=== PATIENT | female | born 1990 | race African-American/Black ===

== ENCOUNTER 2017-08-09 21:17 | Emergency (ER) | payer BC, MEDICARE ==
[~2017-08-09] VITALS: Ht 170.2 cm; Wt 72.3 kg
[2017-08-09 23:21] LABS: BASOPHILS % 0.9 % (0.0-2.0); EOSINOPHILS % 0.9 % (0.0-5.0); HEMATOCRIT. 35.3 % (36.0-48.0); HEMOGLOBIN. 11.8 g/dL (12.0-16.0); LYMPHOCYTES % 30.4 % (20.0-50.0); MEAN CORPUSCULAR HEMOGLOBIN 27.9 pg (28.0-32.0); MEAN CORPUSCULAR VOLUME 83.8 fL (81.0-99.0); MEAN PLATELET VOLUME 8.1 fl (7.4-10.4); MONOCYTES % 4.6 % (2.0-8.0); NEUTROPHILS % 63.2 % (40.0-76.0); PLATELET 312 x1000/uL (130-400); RED BLOOD CELL COUNT 4.21 mill/uL (4.2-5.4); RED CELL DISTRIBUTION WIDTH 14.4 % (11.6-14.6)
[2017-08-09 23:31] LABS: CHLORIDE 103 mEq/L (98-107)
[2017-08-09 23:49] LABS: B-HCG QUANTITATIVE 43503 mIU/mL (<3)
[2017-08-10 01:44] LABS: CLARITY URINE CLEAR (CLEAR); COLOR URINE YELLOW (YELLOW); KETONES URINE 1+ (NEGATIVE); LEUKOCYTE ESTERASE URINE NEGATIVE (NEGATIVE); NITRITE URINE NEGATIVE (NEGATIVE); OCCULT BLOOD URINE NEGATIVE (NEGATIVE); PH URINE 5.5 (4.5-8.0); PROTEIN URINE NEGATIVE (NEGATIVE); SPECIFIC GRAVITY URINE 1.024 (1.005-1.030); UROBILINOGEN URINE 0.2 E.U./dL (0.2-1.0)
[2017-08-10] MEDS ORDERED: SODIUM CHLORIDE 0.9% 1,000 ML IV ONE (02:30)
[2017-08-10] MEDS ORDERED: ACETAMINOPHEN 325MG TABLET PO ONE (02:30)
[2017-08-10 05:45] VITALS: BP 102/65
== END 2017-08-10 05:54 | disposition home or self-care (01) ==
LOC: ER 21:17
DX: O26.892 Other specified pregnancy related conditions, second trimester (principal); R51 Headache; R04.0 Epistaxis; O20.9 Hemorrhage in early pregnancy, unspecified; R10.9 Unspecified abdominal pain; O99.282 Endocrine, nutritional and metabolic diseases complicating pregnancy, second trimester; E86.0 Dehydration; Z3A.16 16 weeks gestation of pregnancy
CPT/HCPCS: 36415; 80053; 81003; 83690; 84702; 85025; 85610; 86850; 86900; 86901; 96360; 99284; J7030; Z7610

== ENCOUNTER 2019-09-13 05:44 | Inpatient (IN) | payer MEDICARE ==
[~2019-09-13] VITALS: Ht 170.2 cm; Wt 93.9 kg
[2019-09-13] MEDS: LACTATED RINGERS 1,000 ML IV SCH ×2 (06:10→07:13)
[2019-09-13] MEDS ORDERED: RHO(D) IMMUNE GLOBULIN 300 MCG/SYR IM ONE (06:15)
[2019-09-13 06:46] LABS: INR 0.9; PARTIAL THROMBOPLASTIN TIME 24.5 sec (23.4-31.0); PROTHROMBIN TIME 9.5 sec (9.6-11.0)
[2019-09-13 06:49] LABS: BASOPHILS % 0.6 % (0.0-2.0); EOSINOPHILS % 1.5 % (0.0-5.0); HEMATOCRIT. 38.1 % (36.0-48.0); HEMOGLOBIN. 12.6 g/dL (12.0-16.0); LYMPHOCYTES % 32.4 % (20.0-50.0); MEAN CORPUSCULAR HEMOGLOBIN 27.3 pg (28.0-32.0); MEAN CORPUSCULAR VOLUME 82.2 fL (81.0-99.0); MEAN PLATELET VOLUME 8.5 fl (7.4-10.4); MONOCYTES % 5.8 % (2.0-8.0); NEUTROPHILS % 59.7 % (40.0-76.0); PLATELET 287 x1000/uL (130-400); RED BLOOD CELL COUNT 4.64 mill/uL (4.2-5.4)
[2019-09-13] MEDS ORDERED: CEFAZOLIN SODIUM 1000MG/VIAL ONE (07:13)
[2019-09-13] MEDS ORDERED: MORPHINE SULFATE/PF 1MG/ML 10ML AMP ONE (07:13)
[2019-09-13] MEDS ORDERED: PHENYLEPHRINE HCL 10 MG/ML 1ML (IV VIAL) IV ONE (07:13)
[2019-09-13] MEDS ORDERED: OXYTOCIN 10 UNITS/ML 1ML ONE ×2 (07:13→07:59)
[2019-09-13] MEDS ORDERED: FENTANYL CITRATE/PF 50MCG/ML 2ML VIAL ONE (07:13)
[2019-09-13] MEDS ORDERED: ONDANSETRON HCL 4MG/2ML INJ ONE (07:14)
[2019-09-13 07:17] LABS: CLARITY URINE CLEAR (CLEAR); COLOR URINE YELLOW (YELLOW); KETONES URINE NEGATIVE (NEGATIVE); LEUKOCYTE ESTERASE URINE 2+ (NEGATIVE); NITRITE URINE NEGATIVE (NEGATIVE); OCCULT BLOOD URINE NEGATIVE (NEGATIVE); PH URINE 6.5 (4.5-8.0); PROTEIN URINE NEGATIVE (NEGATIVE); SPECIFIC GRAVITY URINE 1.008 (1.005-1.030); UROBILINOGEN URINE 0.2 E.U./dL (0.2-1.0)
[2019-09-13 07:35] LABS: *AMPHETAMINES SCREEN URINE NEGATIVE (NEGATIVE); *BARBITURATES SCREEN URINE NEGATIVE (NEGATIVE); *BENZODIAZEPINES SCREEN URINE NEGATIVE (NEGATIVE); *COCAINE SCREEN URINE NEGATIVE (NEGATIVE); OPIATES URINE SCREEN NEGATIVE (NEGATIVE)
[2019-09-13 07:36] LABS: CANNABINOID URINE SCREEN NEGATIVE (NEGATIVE); METHADONE URINE SCREEN NEGATIVE (NEGATIVE); PHENCYCLIDINE URINE SCREEN NEGATIVE (NEGATIVE)
[2019-09-13] MEDS ORDERED: DIPHENHYDRAMINE 50MG/ML VIAL ONE (07:54)
[2019-09-13] MEDS ORDERED: KETOROLAC 60MG/2ML VIAL IM ONE (07:54)
[2019-09-13] MEDS ORDERED: DEXT 5%/LR + PITOCIN 20UNITS/L 1,000 ML IV SCH (08:04)
[2019-09-13] MEDS ORDERED: IBUPROFEN 800MG TABLET PO PRN (08:15)
[2019-09-13] MEDS ORDERED: HYDROCODONE/ACETAMINOPHEN 5/325MG TABLET PO PRN (08:15)
[2019-09-13] MEDS ORDERED: ONDANSETRON HCL 4MG/2ML INJ IV PRN (08:15)
[2019-09-13] MEDS ORDERED: LANOLIN OINT 7GM TUBE TOP PRN (08:15)
[2019-09-13] MEDS ORDERED: IBUPROFEN 400MG TABLET PO PRN (08:15)
[2019-09-13] MEDS ORDERED: HEMORRHOIDAL SUPP PR PRN (08:15)
[2019-09-13] MEDS: KETOROLAC 30MG/ML VIAL IV SCH ×2 (09:15→18:02)
[2019-09-13] MEDS ORDERED: BUTORPHANOL TARTRATE 2 MG/ML VIAL IV PRN (09:15)
[2019-09-13] MEDS ORDERED: NALOXONE HCL 0.4 MG/ML 1ML VIAL IV PRN (09:15)
[2019-09-13] MEDS ORDERED: DIPHENHYDRAMINE 50MG/ML VIAL IV PRN (09:15)
[2019-09-13 10:30] VITALS: BP 113/70
[2019-09-13] MEDS: MAGNESIUM/ALUMINUM HYDROXIDE/SIMETHICONE 30ML UDC PO SCH (10:50)
[2019-09-13] MEDS: PRENATAL VIT/FE FUMARATE/FA TABLET PO SCH (10:50)
[2019-09-13] MEDS: SIMETHICONE 80MG TABLET CHEW PO SCH ×2 (10:50→21:00)
[2019-09-13] MEDS: FERROUS SULFATE 325MG TABLET PO SCH (10:55)
[2019-09-13 11:00] VITALS: BP 113/70
[2019-09-13 17:00] VITALS: BP 105/63
[2019-09-13 19:30] VITALS: BP 102/56
[2019-09-13] MEDS: DOCUSATE SODIUM 100MG CAPSULE PO SCH (21:00)
[2019-09-13 23:30] VITALS: BP 105/65
[2019-09-14 04:00] VITALS: BP 106/62
[2019-09-14 05:53] VITALS: BP 105/63
[2019-09-14 07:37] LABS: BASOPHILS % 0.8 % (0.0-2.0); EOSINOPHILS % 1.7 % (0.0-5.0); HEMATOCRIT. 32.9 % (36.0-48.0); HEMOGLOBIN. 11.1 g/dL (12.0-16.0); MEAN CORPUSCULAR HEMOGLOBIN 27.8 pg (28.0-32.0); MEAN CORPUSCULAR VOLUME 82.8 fL (81.0-99.0); MEAN PLATELET VOLUME 8.5 fl (7.4-10.4); MONOCYTES % 5.7 % (2.0-8.0); NEUTROPHILS % 66.8 % (40.0-76.0); PLATELET 236 x1000/uL (130-400); RED BLOOD CELL COUNT 3.98 mill/uL (4.2-5.4); RED CELL DISTRIBUTION WIDTH 14.8 % (11.6-14.6)
[2019-09-14 08:00] VITALS: BP 123/69
[2019-09-14] MEDS: FERROUS SULFATE 325MG TABLET PO SCH ×2 (14:49→17:30)
[2019-09-14] MEDS: MAGNESIUM/ALUMINUM HYDROXIDE/SIMETHICONE 30ML UDC PO SCH ×3 (14:49→23:47)
[2019-09-14] MEDS: SIMETHICONE 80MG TABLET CHEW PO SCH ×2 (14:49→18:31)
[2019-09-14] MEDS: ACETAMINOPHEN WITH CODEINE 300/30MG TABLET PO PRN ×2 (14:49→23:47)
[2019-09-14] MEDS: PRENATAL VIT/FE FUMARATE/FA TABLET PO SCH (14:50)
[2019-09-14 16:00] VITALS: BP 133/77
[2019-09-14 19:10] VITALS: BP 115/75
[2019-09-14 23:30] VITALS: BP 112/75
[2019-09-14] MEDS: DOCUSATE SODIUM 100MG CAPSULE PO SCH (23:47)
[2019-09-14] MEDS: BISACODYL 10MG SUPP PR PRN ×2 (23:48→23:53)
[2019-09-15] MEDS ORDERED: BISACODYL 5MG TABLET PO PRN
[2019-09-15] MEDS ORDERED: IBUP-2030 MT (02:48)
[2019-09-15] MEDS: PRENATAL VIT/FE FUMARATE/FA TABLET PO SCH (08:36)
[2019-09-15 08:37] VITALS: BP 132/80
[2019-09-15] MEDS: ACETAMINOPHEN WITH CODEINE 300/30MG TABLET PO PRN (08:37)
== END 2019-09-15 14:55 | disposition home or self-care (01) | DRG 540 ==
LOC: 8 EST LDRP 05:44 → OBSVTOIN 05:44 → 8EST 10:07
PROVIDERS: ADMIT Obstetrics & Gynecology; ATTEND Obstetrics & Gynecology
PROC: 10D00Z1 Extraction of Products of Conception, Low, Open Approach (ICD-10-PCS; principal; 2019-09-13)
DX: O34.211 Maternal care for low transverse scar from previous cesarean delivery (principal); O69.81X0 Labor and delivery complicated by cord around neck, without compression, not applicable or unspecified; Z37.0 Single live birth; Z3A.39 39 weeks gestation of pregnancy; O99.824 Streptococcus B carrier state complicating childbirth
CPT/HCPCS: 36415; 80305; 81003; 85025; 86592; 86703; 86850; 86900; 87340; 88307; 99281; J0690; J1200; J1885; J2274; J2370; J2405; J2590; J3010

== ENCOUNTER 2021-09-29 18:05 | Observation (INO) | payer MEDICAID, MEDICARE ==
[~2021-09-29] VITALS: Ht 170.2 cm; Wt 90.3 kg
[~2021-09-29 18:05] MED LIST: IBUP-2030 MT
[2021-09-29] MEDS ORDERED: BETAMETHASONE ACET/BETAMET 30 MG/5 ML VIAL IM NR (18:37)
== END 2021-09-29 19:00 | disposition home or self-care (01) ==
LOC: 8 EST LDRP 18:05
PROVIDERS: ADMIT Obstetrics & Gynecology; ATTEND Obstetrics & Gynecology
DX: O26.893 Other specified pregnancy related conditions, third trimester (principal); R10.9 Unspecified abdominal pain; Z3A.33 33 weeks gestation of pregnancy
CPT/HCPCS: 59025; 96372; G0378; J0702; 99281; G0379

== ENCOUNTER 2021-09-30 17:59 | Observation (INO) | payer MEDICAID ==
[2021-09-30] MEDS ORDERED: BETAMETHASONE ACET/BETAMET 30 MG/5 ML VIAL IM NR (19:00)
== END 2021-09-30 19:05 | disposition home or self-care (01) ==
LOC: 8 EST A/PP 17:59
PROVIDERS: ADMIT Obstetrics & Gynecology; ATTEND Obstetrics & Gynecology
DX: Z34.90 Encounter for supervision of normal pregnancy, unspecified, unspecified trimester (principal); Z3A.00 Weeks of gestation of pregnancy not specified
CPT/HCPCS: 59025; 96372; G0378; J0702; 99281

== ENCOUNTER 2021-10-22 14:03 | Inpatient (IN) | payer MEDICAID ==
[~2021-10-22] VITALS: Ht 170.2 cm; Wt 90.3 kg
[2021-10-22] MEDS ORDERED: MISOPROSTOL 100MCG TABLET VG SCH (14:30)
[2021-10-22] MEDS ORDERED: NALOXONE HCL 0.4 MG/ML 1ML VIAL IM PRN (14:30)
[2021-10-22] MEDS ORDERED: CARBOPROST TROMETHAMINE 250 MCG/ML AMPUL IM PRN (14:30)
[2021-10-22] MEDS ORDERED: METHYLERGONOVINE MALEATE 0.2 MG/ML IM PRN (14:30)
[2021-10-22] MEDS ORDERED: DEXT 5%/LR + PITOCIN 20UNITS/L 1,000 ML IV SCH (14:30)
[2021-10-22] MEDS ORDERED: MORPHINE SULFATE/PF 1MG/ML 10ML AMP ONE (15:06)
[2021-10-22] MEDS ORDERED: SUCCINYLCHOLINE CHLORIDE 200MG/10ML IV ONE (15:16)
[2021-10-22] MEDS ORDERED: ONDANSETRON HCL 4MG/2ML INJ ONE ×2 (15:16→15:17)
[2021-10-22] MEDS ORDERED: KETOROLAC 60MG/2ML VIAL IM ONE (15:16)
[2021-10-22] MEDS: LACTATED RINGERS 1,000 ML IV SCH ×2 (15:21→16:19)
[2021-10-22] MEDS ORDERED: EPHEDRINE SULFATE 50MG/ML VIAL ONE (15:22)
[2021-10-22] MEDS ORDERED: OXYTOCIN 10 UNITS/ML 1ML ONE (15:23)
[2021-10-22 15:30] LABS: BASOPHILS % 0.8 % (0.0-2.0); EOSINOPHILS % 0.5 % (0.0-5.0); HEMATOCRIT. 38.2 % (36.0-48.0); HEMOGLOBIN. 12.7 g/dL (12.0-16.0); LYMPHOCYTES % 26.8 % (20.0-50.0); MEAN CORPUSCULAR HEMOGLOBIN 27.2 pg (28.0-32.0); MEAN CORPUSCULAR VOLUME 81.6 fL (81.0-99.0); MEAN PLATELET VOLUME 9.9 fl (7.4-10.4); MONOCYTES % 6.9 % (2.0-8.0); PLATELET 234 x1000/uL (130-400); RED BLOOD CELL COUNT 4.68 mill/uL (4.2-5.4); RED CELL DISTRIBUTION WIDTH 18.9 % (11.6-14.6)
[2021-10-22 15:42] LABS: INR 0.9; PARTIAL THROMBOPLASTIN TIME 25.3 sec (23.4-31.0); PROTHROMBIN TIME 9.9 sec (9.6-11.0)
[2021-10-22 16:09] LABS: HEPATITIS B SURFACE ANTIGEN NEGATIVE
[2021-10-22] MEDS ORDERED: CITRIC ACID/SODIUM CITRATE SOLN 30ML UDC PO NR (16:15)
[2021-10-22 17:21] LABS: CLARITY URINE CLEAR (CLEAR); COLOR URINE YELLOW (YELLOW); KETONES URINE TRACE (NEGATIVE); LEUKOCYTE ESTERASE URINE NEGATIVE (NEGATIVE); NITRITE URINE NEGATIVE (NEGATIVE); OCCULT BLOOD URINE NEGATIVE (NEGATIVE); PROTEIN URINE NEGATIVE (NEGATIVE); SPECIFIC GRAVITY URINE 1.007 (1.005-1.030); UROBILINOGEN URINE 0.2 E.U./dL (0.2-1.0)
[2021-10-22 17:33] LABS: *AMPHETAMINES SCREEN URINE NEGATIVE (NEGATIVE); *BARBITURATES SCREEN URINE NEGATIVE (NEGATIVE); *BENZODIAZEPINES SCREEN URINE NEGATIVE (NEGATIVE); *COCAINE SCREEN URINE NEGATIVE (NEGATIVE); CANNABINOID URINE SCREEN NEGATIVE (NEGATIVE); METHADONE URINE SCREEN NEGATIVE (NEGATIVE); OPIATES URINE SCREEN NEGATIVE (NEGATIVE); PHENCYCLIDINE URINE SCREEN NEGATIVE (NEGATIVE)
[2021-10-22] MEDS ORDERED: NALOXONE HCL 0.4 MG/ML 1ML VIAL IV PRN (20:00)
[2021-10-22] MEDS ORDERED: MORPHINE SULFATE 4 MG/ML CPJ (NOT FOR IM USE) IV PRN (20:00)
[2021-10-22] MEDS ORDERED: FENTANYL CITRATE/PF 50MCG/ML 2ML VIAL IV PRN (20:00)
[2021-10-22] MEDS: DEXT 5%/LR + PITOCIN 20UNITS/L 1,000 ML IV SCH (20:15)
[2021-10-22] MEDS ORDERED: DIPHENHYDRAMINE 25MG CAPSULE PO PRN (20:15)
[2021-10-22] MEDS ORDERED: RHO(D) IMMUNE GLOBULIN 300 MCG/SYR IM PRN (20:15)
[2021-10-22] MEDS ORDERED: ACETAMINOPHEN WITH CODEINE 300/30MG TABLET PO PRN (20:15)
[2021-10-22] MEDS ORDERED: ONDANSETRON HCL 4MG/2ML INJ IV PRN (20:15)
[2021-10-22] MEDS ORDERED: BISACODYL 10MG SUPP PR PRN (20:15)
[2021-10-22] MEDS ORDERED: IBUPROFEN 400MG TABLET PO PRN (20:15)
[2021-10-22] MEDS ORDERED: LANOLIN OINT 7GM TUBE TOP PRN (20:15)
[2021-10-22] MEDS ORDERED: HEMORRHOIDAL SUPP PR PRN (20:15)
[2021-10-22] MEDS ORDERED: DOCUSATE SODIUM 100MG CAPSULE PO SCH (21:00)
[2021-10-22 22:20] VITALS: BP 119/76
[2021-10-22] MEDS: KETOROLAC 30MG/ML VIAL IV SCH (22:20)
[2021-10-23] VITALS: BP 125/72
[2021-10-23] MEDS: KETOROLAC 30MG/ML VIAL IV SCH ×4 (01:00→18:58)
[2021-10-23 04:00] VITALS: BP 133/75
[2021-10-23] MEDS: DEXT 5%/LR + PITOCIN 20UNITS/L 1,000 ML IV SCH (05:04)
[2021-10-23] MEDS: FERROUS SULFATE 325MG TABLET PO SCH ×3 (07:30→17:30)
[2021-10-23 09:37] LABS: BASOPHILS % 0.4 % (0.0-2.0); EOSINOPHILS % 0.2 % (0.0-5.0); HEMATOCRIT. 35.6 % (36.0-48.0); HEMOGLOBIN. 11.8 g/dL (12.0-16.0); LYMPHOCYTES % 17.6 % (20.0-50.0); MEAN CORPUSCULAR HEMOGLOBIN 26.9 pg (28.0-32.0); MEAN CORPUSCULAR VOLUME 81.1 fL (81.0-99.0); MEAN PLATELET VOLUME 9.2 fl (7.4-10.4); MONOCYTES % 5.9 % (2.0-8.0); NEUTROPHILS % 75.9 % (40.0-76.0); PLATELET 209 x1000/uL (130-400); RED BLOOD CELL COUNT 4.39 mill/uL (4.2-5.4); RED CELL DISTRIBUTION WIDTH 18.5 % (11.6-14.6)
[2021-10-23] MEDS: MAGNESIUM/ALUMINUM HYDROXIDE/SIMETHICONE 30ML UDC PO SCH ×4 (12:30→22:08)
[2021-10-23] MEDS: SIMETHICONE 80MG TABLET CHEW PO SCH ×4 (13:00→22:08)
[2021-10-23] MEDS: PRENATAL VIT/FE FUMARATE/FA TABLET PO SCH (16:24)
[2021-10-23 19:30] VITALS: BP 122/56
[2021-10-24] MEDS: IBUPROFEN 800MG TABLET PO PRN ×4 (01:06→23:04)
[2021-10-24 04:00] VITALS: BP 129/74
[2021-10-24 08:00] VITALS: BP 132/80
[2021-10-24] MEDS: PRENATAL VIT/FE FUMARATE/FA TABLET PO SCH (08:44)
[2021-10-24 12:00] VITALS: BP 137/83
[2021-10-24 16:00] VITALS: BP 143/85
[2021-10-24 20:00] VITALS: BP 134/86
[2021-10-25 04:30] VITALS: BP 140/78
[2021-10-25] MEDS: IBUPROFEN 800MG TABLET PO PRN ×2 (04:45→10:22)
[2021-10-25 07:50] VITALS: BP 140/76
[2021-10-25] MEDS: FERROUS SULFATE 325MG TABLET PO SCH (09:32)
[2021-10-25] MEDS: MAGNESIUM/ALUMINUM HYDROXIDE/SIMETHICONE 30ML UDC PO SCH (09:32)
[2021-10-25] MEDS: PRENATAL VIT/FE FUMARATE/FA TABLET PO SCH (09:32)
[2021-10-25] MEDS: SIMETHICONE 80MG TABLET CHEW PO SCH (09:32)
== END 2021-10-25 11:45 | disposition home or self-care (01) | DRG 540 ==
LOC: 8 EST LDRP 14:03 → 8EST 22:34
PROVIDERS: ADMIT Obstetrics & Gynecology; ATTEND Obstetrics & Gynecology
PROC: 10D00Z1 Extraction of Products of Conception, Low, Open Approach (ICD-10-PCS; principal; 2021-10-22)
PROC: 3E0R3BZ Introduction of Anesthetic Agent into Spinal Canal, Percutaneous Approach (ICD-10-PCS; 2021-10-22)
DX: O30.043 Twin pregnancy, dichorionic/diamniotic, third trimester (principal); O36.4XX2 Maternal care for intrauterine death, fetus 2; Z37.3 Twins, one liveborn and one stillborn; O34.211 Maternal care for low transverse scar from previous cesarean delivery; Z3A.39 39 weeks gestation of pregnancy
CPT/HCPCS: 36415; 80305; 81003; 85025; 86592; 86703; 86762; 86850; 86900; 86920; 87340; 87426; 88307; 99281; J0330; J1885; J2274; J2405; J2590; J3490; J7120